=== PATIENT | female | born 1970 | race Caucasian/White ===

== ENCOUNTER 2020-03-12 07:10 | Day surgery (SDC) | payer BC ==
[2020-03-12] MEDS ORDERED: fentaNYL 100 MCG/2 ML SDV ONE (07:17)
[2020-03-12] MEDS ORDERED: Midazolam 1 MG/ML 2 ML SDV ONE (07:18)
[2020-03-12] MEDS ORDERED: Propofol 200 MG/20 ML SDV ONE (07:18)
[2020-03-12] MEDS ORDERED: Lactated Ringers 1,000 ML IV SCH (08:00)
[2020-03-12] MEDS ORDERED: Glycopyrrolate 0.2 MG/ML 2 ML SDV IVPUSH ONE (08:30)
[2020-03-12] MEDS ORDERED: Cyanocobalamin (Vitamin B12) 1,000 MCG/ML SDV IM ONE (09:00)
[2020-03-12] MEDS ORDERED: Pantoprazole 40 MG Vial IVPUSH ONE (09:16)
[2020-03-12] MEDS ORDERED: MVI, Adult with Vitamin K 10 ML, Thiamine 200 MG, Chromium/Copper/Mang/Selen/Zn 1 ML in... IV ONE ×4 (10:00)
[2020-03-12] MEDS ORDERED: Sodium Chloride 0.9% 1,000 ML IV SCH (10:15)
[2020-03-12] MEDS ORDERED: Famotidine 20 MG/2 ML SDV IVPUSH PRN (11:00)
[2020-03-12] MEDS ORDERED: Hydrocortisone Sodium Succinate 100 MG/2 ML SDV IVPUSH PRN (11:00)
[2020-03-12] MEDS ORDERED: diphenhydrAMINE 50 MG/ML SDV IVPUSH PRN (11:00)
--- NOTE | 2020-03-22 14:02 | OR ---
DATE OF PROCEDURE: 03/12/2020 SURGEON: Lalo Hubbard MD PREOPERATIVE DIAGNOSIS: History of reflux symptoms, status post Elio-en-Y gastric bypass. POSTOPERATIVE DIAGNOSES: 1. History of reflux symptoms, status post Elio-en-Y gastric bypass. 2. 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 OPERATIVE PROCEDURE: Upper gastrointestinal endoscopy. ANESTHESIA: IV sedation. INDICATION FOR PROCEDURE: A 49-year-old status post Elio-en-Y gastric bypass in 2007. She presents now with symptoms suggestive of reflux. The plan is to proceed with upper GI endoscopy with biopsies as indicated. Potential risks including bleeding and perforation were discussed and the patient wishes to proceed. DETAILS OF PROCEDURE: The patient was taken to the operating room and placed in a left lateral decubitus position. IV sedation was administered, after which the upper GI endoscope was passed orally through the length of the esophagus into the gastric pouch and from there through the gastrojejunostomy and roughly 20 cm into the Elio limb. 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 This at present had a small fragment of old ingested food within it, but the exam otherwise was entirely normal with there being no areas of inflammation, stricturing, or ulceration. The scope was then withdrawn and the above findings reconfirmed. It is possible that the patient may be getting some food within the elongated blind end, and if these symptoms continued, diagnostic laparoscopy probably would be warranted with resection of the elongated blind end and then look for any other signs of partial bowel obstruction. The patient will be following up with Tiffany Tomlinson in roughly 3 weeks for recheck. Of note, the patient's ferritin level was only 4 and the patient will be receiving Feraheme 510 mg today and that dose to be repeated in roughly a week. Lalo Hubbard MD /[id number]
== END 2020-03-12 12:08 | disposition home or self-care (01) ==
LOC: JP.SDS 07:10
PROVIDERS: ATTEND Surgery
DX: K21.9 Gastro-esophageal reflux disease without esophagitis (principal); Z98.84 Bariatric surgery status; Z88.0 Allergy status to penicillin
CPT/HCPCS: 43235; C9113; J2250; J2704; J3010; J3411; J3420; J3490; J7030; J7120; Q0138

== ENCOUNTER 2021-12-07 05:06 | Day surgery (SDC) | payer BC ==
[2021-12-07] MEDS: Lactated Ringers 1,000 ML IV SCH (06:25)
[2021-12-07] MEDS: Glycopyrrolate 0.2 MG/ML 2 ML SDV IVPUSH ONE (06:55)
[2021-12-07] MEDS ORDERED: Midazolam 1 MG/ML 2 ML SDV ONE (07:04)
[2021-12-07] MEDS ORDERED: fentaNYL 100 MCG/2 ML SDV ONE (07:04)
[2021-12-07] MEDS ORDERED: Propofol 200 MG/20 ML SDV ONE (07:05)
[2021-12-07] MEDS: Cyanocobalamin (Vitamin B12) 1,000 MCG/ML SDV IM ONE (07:10)
[2021-12-07] MEDS: MVI, Adult with Vitamin K 10 ML, Thiamine 200 MG, Zinc/Copper/Manganese/Selenium 1 ML i... IV ONE ×4 (07:48)
== END 2021-12-07 09:59 | disposition home or self-care (01) ==
LOC: JP.SDS 05:06
PROVIDERS: ATTEND Surgery
DX: K21.00 Gastro-esophageal reflux disease with esophagitis, without bleeding (principal); K44.9 Diaphragmatic hernia without obstruction or gangrene; E66.01 Morbid (severe) obesity due to excess calories; Z88.0 Allergy status to penicillin; Z68.38 Body mass index [BMI] 38.0-38.9, adult; Z87.19 Personal history of other diseases of the digestive system
CPT/HCPCS: 88305; J2250; J2704; J3010; J3411; J3420; J3490; J7120